=== PATIENT | female | born 1960 ===

== ENCOUNTER 2017-08-28 14:34 | Emergency (ER) | payer BC ==
[2017-08-28 15:00] VITALS: RESP 18; TEMP 99; O2SAT 100
--- NOTE | 2017-08-28 15:15 | C.PDOC ---
History Of Present Illness 57yo female, presents to ED with complaints of intermittent lightheadedness, throat pain (pointing to neck), and lower back pain radiating to her left leg. Patient states in the past, she was informed she had thyroid problems and has not been evaluated for the past 2 years (since last evaluation in the [place]). PAtient states she has been gaining weight as well and is concerned her symptoms are due to her thyroid. She went to a clinic for evaluation 1 month ago and was given allergy medication and states she did not have her thyroid evaluated. She denies any fever, chills, chest pain and offers no other medical complaints. PMD: Clinic Time Seen by Provider: 08/28/17 15:07 Chief Complaint (Nursing): Dizziness/Lightheaded History Per: Patient History/Exam Limitations: no limitations Onset/Duration Of Symptoms: Intermittent Episodes Current Symptoms Are (Timing): Still Present Past Medical History Reviewed: Historical Data, Nursing Documentation, Vital Signs Vital Signs: Last Vital Signs Temp 99 F 08/28/17 14:56 Pulse 85 08/28/17 16:54 Resp 18 08/28/17 16:54 BP 149/90 08/28/17 16:54 Pulse Ox 100 08/28/17 17:39 - Medical History PMH: No Chronic Diseases Other PMH: unknown thyroid issue Surgical History: No Surg Hx Family History: States: No Known Family Hx - Social History Hx Alcohol Use: No Hx Substance Use: No - Immunization History Hx Tetanus Toxoid Vaccination: No Hx Influenza Vaccination: No Hx Pneumococcal Vaccination: No Review Of Systems Except As Marked, All Systems Reviewed And Found Negative. Constitutional: Negative for: Fever, Chills ENT: Positive for: Throat Pain Cardiovascular: Positive for: Light Headedness. Negative for: Chest Pain Musculoskeletal: Positive for: Back Pain, Leg Pain Physical Exam - Physical Exam Appears: Non-toxic, No Acute Distress Skin: Normal Color, Warm, Dry Head: Atraumatic, Normacephalic Eye(s): bilateral: Normal Inspection, PERRL, EOMI Ear(s): Bilateral: Normal Nose: Normal, No Flaring Oral Mucosa: Moist Throat: No Erythema, No Exudate, No Drooling, No Mass Neck: Normal ROM, Supple, Other (no thyroid nodules noted) Lymphatic: Normal Exam, No Adenopathy Chest: Symmetrical Cardiovascular: Rhythm Regular Respiratory: Normal Breath Sounds, No Rhonchi, No Wheezing Rectal: No Deferred Back: Normal Inspection, No Vertebral Tenderness, No Decreased ROM, No Paraspinal Tenderness Extremity: Normal ROM, No Tenderness Neurological/Psych: Oriented x3, Normal Speech ED Course And Treatment - Laboratory Results Result Diagrams: 08/28/17 15:30 08/28/17 15:30 O2 Sat by Pulse Oximetry: 100 (RA) Pulse Ox Interpretation: Normal Medical Decision Making Medical Decision Making: Impression: Concern for thyroid, multiple symptoms Plan: -- Labs including TSH, Free T4 levels -- Meclizine 25mg PO Progress: Labs reviewed and all within normal limits. TSH: 1.56 Free T4: 1.09 Patient informed of findings and given copies of results. Instructed to follow up with PMD in 2-3 days. Stable for discharge home. Disposition Counseled Patient/Family Regarding: Studies Performed, Diagnosis, Need For Followup - Disposition Referrals: [facility] [Outside] [facility] [Outside] Disposition: HOME/ ROUTINE Disposition Time: 16:43 Condition: STABLE Additional Instructions: Vaya a steinberg mdico o la clnica en 2-5 puentes sin falta, para mas evaluacin. [facility] los medicamentos mario alberto indicado. Volver a la robert de emergencia en cualquier momento si los sntomas persisten o empeoran. 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 - Scribe Statement The provider has reviewed the documentation as recorded by the Scribe (Sofia Ortez) Provider Attestation: All medical record entries made by the Scribe were at my direction and personally dictated by me. I have reviewed the chart and agree that the record accurately reflects my personal performance of the history, physical exam, medical decision making, and the department course for this patient. I have also personally directed, reviewed, and agree with the discharge instructions and disposition.
[2017-08-28 15:35] LABS: BASO # 0.1 K/uL (0.0-0.2); BASO % 1.1 % (0.0-2.0); EOS # 0.1 K/uL (0.0-0.7); EOS % 0.9 % (0.0-4.0); LYMPH % 24.5 % (20.0-40.0); MEAN CELL VOLUME 89.1 fL (81.0-99.0); MEAN CORPUSCULAR HEMOGLOBIN 31.1 pg (27.0-31.0); MEAN CORPUSCULAR HGB CONC 34.9 g/dL (33.0-37.0); MEAN PLATELET VOLUME 8.1 fL (7.2-11.7); MONO # 0.5 K/uL (0.0-0.8); MONO % 5.9 % (0.0-10.0); NEUT # 5.5 K/uL (1.8-7.0); NEUT % 67.6 % (50.0-75.0); RBC 4.81 Mil/uL (3.80-5.20); WHITE BLOOD COUNT 8.1 K/uL (4.8-10.8)
[2017-08-28 15:39] LABS: HCG,QUALITATIVE URINE NEGATIVE (NEGATIVE)
[2017-08-28 15:53] LABS: ALB/GLOB RATIO 1.1 (1.0-2.1); ALT/SGPT 31 U/L (9-52); AST/SGOT 41 U/L (14-36); BLOOD UREA NITROGEN 11 mg/dL (7-17); CALCIUM 9.4 mg/dl (8.6-10.4); GFR AFRICAN-AMERICAN > 60; GFR NON-AFRICAN AMERICAN > 60; URINE BILIRUBIN NEGATIVE (NEGATIVE); URINE BLOOD NEGATIVE (NEGATIVE); URINE CLARITY Clear (Clear); URINE COLOR STRAW (YELLOW); URINE GLUCOSE (UA) NORMAL (Normal); URINE LEUKOCYTE ESTERASE NEGATIVE Leu/uL (Negative); URINE PROTEIN NEGATIVE (NEGATIVE); URINE UROBILINOGEN NORMAL mg/dL (0.2-1.0)
[2017-08-28 15:54] LABS: SQUAMOUS EPITHIAL 1 /hpf (0-5)
[2017-08-28 16:55] VITALS: BP 149/90; PULSE 85
== END 2017-08-28 16:55 | disposition home or self-care (01) ==
LOC: C.ER 14:34
DX: R42 Dizziness and giddiness (principal); M54.5 Low back pain